=== PATIENT | male | born 1955 | race American Indian/Alaskan Native ===

== ENCOUNTER 2019-04-25 10:06 | Day surgery (SDC) | payer OTHER ==
[~2019-04-25 10:06] MED LIST: NACL 0.9% 1000 ML 1,000 ML IV SCH
[2019-04-25] MEDS ORDERED: XYLOCAINE MPF 2% ONE (11:00)
[2019-04-25] MEDS ORDERED: DIPRIVAN 10 MG/ML IV ONE (11:14)
--- NOTE | 2019-04-25 11:18 | Anesthesia Day of Surgery ---
Anesthesia Day of Surgery - Day of Surgery Patient Examined: Yes Patient H&P Reviewed: Yes Patient is NPO: Yes
--- NOTE | 2019-04-25 11:18 | Anesthesia Consultation ---
Anesthesia Consult and Med Hx Date of service: 04/25/19 - Airway Anesthetic Teeth Evaluation: Good ROM Head & Neck: Adequate Mental/Hyoid Distance: Adequate Mallampati Class: Class III Intubation Access Assessment: Possibly Difficult - Pulmonary Exam CTA: Yes - Cardiac Exam Cardiac Exam: RRR - Pre-Operative Health Status ASA Pre-Surgery Classification: ASA2 Proposed Anesthetic Plan: MAC - Pulmonary Hx Smoking: Yes (THC) Hx Respiratory Symptoms: No - Cardiovascular System Hx Hypertension: Yes Hx Heart Attack/AMI: No - Central Nervous System CVA: No - Gastrointestinal Hx Gastroesophageal Reflux Disease: No - Endocrine Hx Renal Disease: No Hx Liver Disease: No Hx Insulin Dependent Diabetes: No Hx Non-Insulin Dependent Diabetes: No Hx Thyroid Disease: No - Other Systems Hx Obesity: No
--- NOTE | 2019-04-25 11:47 | Discharge Summary ---
Short Stay Discharge Plan Activity: advance as tolerated Weight Bearing Status: Weight Bear as Tolerated Diet: regular Follow up with: [facility] [Primary Care Provider] - 7 Days
--- NOTE | 2019-04-25 11:47 | Operative Report ---
Operative Report Operative Report: Date of procedure: 04/25/2019 Procedure: Colonoscopy. Attending physician: Jericho Lafleur M.D. Mammographer: Jericho Lafleur MD Indication: Patient is a 63-year-old male who presents for screening colonoscopy. He had an colonoscopy 10 years ago . This colonoscopy serves to evaluate patient so that treatment may be directed based on the findings. Prior to patients procedure, his history and physical was reviewed in detail. Medications and allergies were also reviewed in detail and patient was felt to be an appropriate candidate for colonoscopy. Consent: Informed consent was obtained after advising the patient and family regarding nature of this procedure, its indications, potential benefits as well as possible complications including but not limited to bleeding perforation and adverse reaction to medication, infection as well as other cardiopulmonary complications. An informed written and verbal consent was then obtained after due opportunity was provided for questions and answers. Monitoring: Patient was monitored continuously with pulse oximetry and electrocardiographic recordings as well as blood pressure recordings. Vital signs remained stable throughout this procedure with no untoward events. Preoperative assessment: Patient was assessed immediately prior to this procedur e for capacity to tolerate monitored anesthesia care and moderate sedation as well as general anesthesia. Patient's ASA classification is 2, Mallampati class is 2, Hyomental distance is 3. Instrument: Olympus video colonoscope:[id number] Medications: Propofol given intravenously in divided doses. For details please refer to anesthesia records. Description of procedure: Patient was placed in the left lateral decubitus position after achieving sedation, a digital rectal examination was performed following which the colonoscope was introduced into the anal verge and advanced to the cecum which was identified by the cecal valve, the appendiceal orifice, as well as by the cecal strap and direct transillumination. The colonoscope was subsequently withdrawn with careful inspection of all mucosal surfaces. Patient tolerated this procedure well and was subsequently taken to the recovery room. The following findings were noted. Findings: The preparation was good. The Winchester prep scale score total was 7. The overall preparation was deemed adequate. There was adequate withdrawal time from the cecum to the rectum greater than 6 minutes. There was adequate visualization of the colon. There were no gross mucosal abnormalities seen from the rectum to the cecum, and with complete withdrawal from the cecum to the rectum. The quality of the colonoscopy was deemed good. On the retroflex view at the anal verge, patient had prominent internal hemorrhoids. Impression: Prominent Internal hemorrhoids otherwise completely normal colonoscopy. Plan: High-fiber diet. Repeat colonoscopy in 10 years, for colorectal cancer screening.
[2019-04-25 12:20] VITALS: BP 122/56
--- NOTE | 2019-04-25 19:05 | Post Anesthesia Evaluation ---
- Post Anesthesia Evaluation Patient Participated: Yes Airway Patent: Yes Stable Respiratory Function: Yes Nausea/Vomiting: No Temp > 96.8F: Yes Pain Manageable: Yes Adequeate Hydration: Yes Anesthesia Complications: No Block Receding Appropriately: Not Applicable Patient on Ventilator: No
== END 2019-04-25 10:07 | disposition home or self-care (01) ==
LOC: GIO 10:06
PROVIDERS: ATTEND Internal Medicine Gastroenterology
DX: Z12.11 Encounter for screening for malignant neoplasm of colon (principal); K64.8 Other hemorrhoids; I10 Essential (primary) hypertension; Z79.899 Other long term (current) drug therapy
CPT/HCPCS: 45378; J2704; J7030